=== PATIENT | female | born 1965 | race Caucasian/White ===

== ENCOUNTER → 2017-11-11 | Outpatient (CLI) | payer BC ==
[~2017-11-11] MED LIST: IOPAMIDOL 370 MG/ML 200 ML INFUS..BTL INJ ONE; NAPROXEN PO; PRILOSEC PO; SODIUM CHLORIDE 0.9% 50ML 50 ML ONE
--- NOTE | 2017-11-11 11:03 | Diagnostic Imaging Report ---
PROCEDURE: CT scan of the chest WITH intravenous contrast, using standard protocol. TECHNIQUE: The chest was scanned utilizing a multidetector helical scanner from the lung apex through the level of the adrenal glands after the IV administration of 100 cc of Isovue 370. Coronal and sagittal multiplanar reformations were obtained. COMPARISON: None. INDICATIONS: CHEST PAIN, EPIGASTRIC PAIN FINDINGS: Lines/tubes: None. Lungs and Airways: 7 mm mixed groundglass and solid nodule along the right minor fissure seen on series 3 image 61. The lungs are otherwise unremarkable without consolidation, fibrotic change, or bronchiectasis. Trachea, mainstem bronchi, and central lobar and segmental bronchi are patent Pleura: No pleural effusion or pneumothorax. Heart and mediastinum: The visualized portions of thyroid gland are unremarkable. There is mild bilateral axillary lymphadenopathy to a maximum of 1.2 cm short axis bilaterally. No mediastinal or hilar lymphadenopathy. No pericardial effusion. Pulmonary outflow tract is of normal caliber. There is no ectasia or aneurysmal dilatation of the thoracic aorta. Soft tissues: No focal soft tissue abnormalities. Abdomen: The visualized portions of the liver, spleen, pancreas, adrenals, and kidneys show no focal abnormalities. Hepatic parenchyma is diffusely hypoattenuating compatible with steatosis. Bones: No osseous destructive lesions. IMPRESSION: 7 mm mixed solid and groundglass nodule along the right minor fissure is likely related to prior infectious or inflammatory process. However, followup CT scan of the chest is suggested in 3-6 months to assess for stability per Fleischner Society 2017 guidelines. Mild symmetric axillary lymphadenopathy is nonspecific though likely reactive. In a female patient of this age, correlation with mammography is suggested. Lymph nodes may also be assessed for stability at the time of the above recommended followup CT scan of the chest. Hepatic steatosis. Dictated by: Corbin Kay M.D. on 11/11/2017 at 11:13 Electronically approved by: Corbin Kay M.D. on 11/11/2017 at 11:13
== END ==
LOC: CT 09:29
PROVIDERS: ATTEND Family Medicine
DX: R07.9 Chest pain, unspecified (principal)
CPT/HCPCS: 71260; Q9967

== ENCOUNTER → 2017-11-21 | Outpatient (CLI) | payer BC ==
[~2017-11-21] MED LIST changes: -IOPAMIDOL 370 MG/ML 200 ML INFUS..BTL INJ ONE; +IRON PO; +OMEPRAZOLE40 MG; -SODIUM CHLORIDE 0.9% 50ML 50 ML ONE
--- NOTE | 2017-11-21 15:47 | Diagnostic Imaging Report ---
#[id number] - [id number] #BILATERAL DIGITAL DIAGNOSTIC MAMMOGRAM WITH CAD: 11/21/2017 No prior exams were available for comparison. Current study contains 6 films. There are scattered fibroglandular elements in both breasts. Current study was also evaluated with a Computer Aided Detection (CAD) system. There are prominent lymph nodes in both axillary regions. These have been noted on a prior Chest CT. Patient is scheduled for a followup Chest CT in 3-6 months and these lymph nodes can be re-evaluated for stability at that time. No significant masses, calcifications, or other findings are seen in either breast. IMPRESSION: BENIGN There is no mammographic evidence of malignancy. A 1 year screening mammogram is recommended. Slightly prominent lymph nodes in both both axillary regions. The results of this mammogram were discussed with the patient. Anthony Meyer Jr., D.O. cw/:11/21/2017 14:58:41 [employer] Stamper: Bridget NOVAK)(Shan), [facility] letter sent: Normal Exam Mammogram BI-RADS: 2 Benign
== END ==
LOC: MAMMO 12:13
PROVIDERS: ATTEND Family Medicine
DX: R59.9 Enlarged lymph nodes, unspecified (principal)

== ENCOUNTER → 2017-11-25 | Day surgery (SDC) | payer BC ==
[~2017-11-25] MED LIST changes: +FENTANYL CITRATE/PF 100MCG/2 ML INJ ONE; +LIDOCAINE HCL 2% LOCAL INJ 5 ML SDV VIAL INJ ONE; +MIDAZOLAM HCL 2 MG/2 ML VIAL ONE; +PROPOFOL IV EMULSION 10 MG/ML 50 ML VIAL ONE
--- OUTSIDE RECORDS SUMMARY | 2017-11-25 06:11 | XMS REPORT ---
Author Author [facility] Address Unknown Phone Unavailable Care Team Providers Care [employer] Attendant Name Role Phone SALLIE CONTI Unavailable Unavailable Problems This patient has no known problems. Allergies, Adverse Reactions, Alerts This patient has no known allergies or adverse reactions. Medications This patient has no known medications. Results Test Description Test Time Test Comments Text Results Atomic Results Result Comments MAMMO DIAG BILATERAL CAD [place] [id number] [place] [id number] Patient Name: EJ GLYNN MR #: [id number] : 1965 Age/Sex: 52/F Req #: [id number] Adm Physician: Ordered by: SALLIE CONTI DO Report #: [id number] Location: MAMMO Room/Bed: Procedure: [id number] MG/MAMMO DIAG BILATERAL CAD Exam Date: 11/21/17 Exam Time: 1230 REPORT STATUS: Signed #[id number] - [id number] #BILATERAL DIGITAL DIAGNOSTIC MAMMOGRAM WITH CAD: 11/21/2017 No prior exams were available for comparison. Current study contains 6 films. There are scattered fibroglandular elements in both breasts. Current study was also evaluated with a Computer Aided Detection (CAD) system. There are prominent lymph nodes in both axillary regions. These have been noted on a prior Chest CT. Patient is scheduled for a followup Chest CT in 3- 6 months and these lymph nodes can be re-evaluated for stability at that time. No significant masses, calcifications, or other findings are seen in either breast. IMPRESSION: BENIGN There is no mammographic evidence of malignancy. A 1 year screening mammogram is recommended. Slightly prominent lymph nodes in both both axillary regions. The results of this mammogram were discussed with the patient. Scottie Meyer Jr., D.O. cw /:11/21/2017 14:58:41 [employer]: Bridget NOVAK)(Shan), [facility] letter sent: Normal Exam Mammogram BI-RADS : 2 Benign Dictated By: SCOTTIE MEYER DO 1458 Transcribed By: MUNDO on 11/21/171457 COPY TO: SALLIE CONTI DO CT CHEST [address] [place] [address] Patient Name: EJ GLYNN MR #: [id number] : 1965 Age/Sex: 52/F Req #: [id number] Adm Physician: Ordered by: SALLIE CONTI DO Report #: [id number] Location: CT Room/Bed: Procedure: [id number] CT/CT CHEST W Exam Date: 11/11/17 Exam Time: 1016 REPORT STATUS: Signed PROCEDURE: CT scan of the chest WITH intravenous contrast, using standard protocol. TECHNIQUE: The chest was scanned utilizing a multidetector helical scanner from the lung apex through the level of the adrenal glands after the IV administration of 100 cc of Isovue 370. Coronal and sagittal multiplanar reformations were obtained. COMPARISON: None. INDICATIONS: CHEST PAIN, EPIGASTRIC PAIN FINDINGS: Lines/tubes: None. Lungs and Airways: 7 mm mixed groundglass and solid nodule along the right minor fissure seen on series 3 image 61. The lungs are otherwise unremarkable without consolidation, fibrotic change, or bronchiectasis. Trachea, mainstem bronchi, and central lobar and segmental bronchi are patent Pleura: No pleural effusion or pneumothorax. Heart and mediastinum: The visualized portions of thyroid gland are unremarkable. There is mild bilateral axillary lymphadenopathy to a maximum of 1.2 cm short axis bilaterally. No mediastinal or hilar lymphadenopathy. No pericardial effusion. Pulmonary outflow tract is of normal caliber. There is no ectasia or aneurysmal dilatation of the thoracic aorta. Soft tissues: No focal soft tissue abnormalities. Abdomen: The visualized portions of the liver, spleen, pancreas, adrenals, and kidneys show no focal abnormalities. Hepatic parenchyma is diffusely hypoattenuating compatible with steatosis. Bones: No osseous destructive lesions. IMPRESSION: 7 mm mixed solid and groundglass nodule along the right minor fissure is likely related to prior infectious or inflammatory process. However, followup CT scan of the chest is suggested in 3-6 months to assess for stability per Fleischner Society 2017 guidelines. Mild symmetric axillary lymphadenopathy is nonspecific though likely reactive. In a female patient of this age, correlation with mammography is suggested. Lymph nodes may also be assessed for stability at the time of the above recommended followup CT scan of the chest. Hepatic steatosis. Dictated by: Abelardo Ramesh M.D. on 2017 at 11:13 Electronically approved by: Abelardo Ramesh M.D. on 11/11/2017 at 11:13 Dictated By: ABELARDO RAMESH MD 1113 Transcribed By: MASOUD on 11/11/17 1113 COPY TO: SALLIE CONTI DO
--- NOTE | 2017-11-25 09:49 | Operative Report ---
DATE OF PROCEDURE: November 25, 2017 PROCEDURE PERFORMED: Esophagogastroduodenoscopy with biopsies and a colonoscopy with polypectomy. REFERRING PHYSICIAN: Dr. Tobi Conti INDICATIONS FOR EGD: History of heartburn, indigestion, iron deficiency anemia. INDICATIONS FOR COLONOSCOPY: Colorectal cancer screening. MEDICATION: Patient was done under MAC. Please see anesthesiologist note. PROCEDURE IN DETAIL: With the patient in left lateral decubitus position, the flexible fiberoptic Olympus gastroscope was introduced into the esophagus under direct visualization without any difficulty. There was some patchy erythema noted in distal esophagus. The scope was then advanced with ease into her stomach. Mucosa overlying the antrum and the body revealed some diffuse erythema and moderate edema, and biopsies were obtained and sent to stain for H. pylori. The pylorus was of normal contour and shape. It was intubated with ease and the scope was advanced all the way to the second portion of the duodenum. Biopsies were obtained from the proximal second portion to rule out sprue considering patient's history of iron deficiency. The scope was then withdrawn back into the stomach and retroflexed, and the mucosa overlying the fundus and the cardia appeared to be within normal limits. The scope was then straightened out. The stomach was decompressed. The scope was subsequently withdrawn. Patient tolerated the procedure well. IMPRESSION: 1. Distal esophagitis. 2. Gastritis, biopsied. Biopsies sent to stain for Helicobacter pylori. 3. Rule out sprue. PLAN: Follow up histology. Continue omeprazole 40 mg 1 p.o. q.a.m. a.c. Patient was then turned around, and after adequate lubrication of the anal canal, a flexible fiberoptic Olympus colonoscope was inserted into the rectum with ease and advanced all the way to the cecum. It was then withdrawn slowly. Mucosa overlying the cecum, ascending colon, transverse colon, and descending colon appeared to be within normal limits. One polyp was hot biopsied from the sigmoid. One polyp was snared from the rectum. The scope was then retroflexed into the distal rectum and small internal hemorrhoids were noted along with hypertrophied anal papillae. The scope was then straightened out. It was subsequently withdrawn. Patient tolerated the procedure well. IMPRESSION: 1. Sigmoid colon polyp, hot biopsied. 2. Rectal polyp, snared. 3. Internal hemorrhoids, none actively bleeding. 4. Hypertrophied anal papillae. PLAN: Follow up histology. Initiate high-fiber low-fat diet. Initiate high-fiber supplement. Patient will need a followup colonoscopy in 3 years. Patient might benefit from small bowel series to complete workup. Job#: [id number] cc:TOBI CONTI DO
== END | disposition home or self-care (01) ==
LOC: OR 06:08
PROVIDERS: ATTEND Internal Medicine Gastroenterology
DX: Z12.11 Encounter for screening for malignant neoplasm of colon (principal); K63.5 Polyp of colon; K62.1 Rectal polyp; Z68.30 Body mass index [BMI] 30.0-30.9, adult; K29.70 Gastritis, unspecified, without bleeding; K20.9 Esophagitis, unspecified; K62.89 Other specified diseases of anus and rectum; K64.8 Other hemorrhoids; A04.8 Other specified bacterial intestinal infections; D50.0 Iron deficiency anemia secondary to blood loss (chronic); K76.0 Fatty (change of) liver, not elsewhere classified; Z01.810 Encounter for preprocedural cardiovascular examination
CPT/HCPCS: 43239; 45384; 45385; 81025; 93005; J2250; J2001

== ENCOUNTER → 2018-04-07 | Outpatient (CLI) | payer BC ==
[~2018-04-07] MED LIST changes: -FENTANYL CITRATE/PF 100MCG/2 ML INJ ONE; -LIDOCAINE HCL 2% LOCAL INJ 5 ML SDV VIAL INJ ONE; -MIDAZOLAM HCL 2 MG/2 ML VIAL ONE; -PROPOFOL IV EMULSION 10 MG/ML 50 ML VIAL ONE
--- NOTE | 2018-04-07 11:07 | Diagnostic Imaging Report ---
PROCEDURE: CT CHEST WITHOUT CONTRAST CT scan of the chest WITHOUT intravenous contrast, using standard protocol. TECHNIQUE: The chest was scanned utilizing a multidetector helical scanner from the apex to the level of the adrenal glands. Coronal and sagittal multiplanar reformations were obtained. DLP: 522.55 mGy-cm COMPARISON: CT scan of the chest dated 11/11/2017 INDICATIONS: EVALUATION OF LUNG NODULE FINDINGS: Lines/tubes: None. Lungs and Airways: The mixed semisolid/groundglass nodule in the right middle lobe appears similar in configuration and size now measuring 6-7 mm (series 4, image 64-66). No additional nodules are seen. No pulmonary parenchymal abnormalities. Pleura: The pleural spaces are clear. Heart and mediastinum: The thyroid gland is normal. No significant mediastinal, hilar or axillary lymphadenopathy is seen. The prominent axillary lymph nodes have decreased in size. The heart and pericardium are within normal limits. Soft tissues: Normal. Abdomen: Limited views of the upper abdomen show no abnormality within the visualized spleen, pancreas or kidneys. Decreased attenuation of the liver compared to the spleen persists. There is calcification within the left adrenal gland. Small splenule noted anterior to the spleen. Bones: Mild degenerative changes of the spine. IMPRESSION: 1. No significant interval change in the size or appearance of the right middle lobe nodule. 2. Previously described axillary lymphadenopathy has decreased in size. 3. Followup CT scan in one year suggested. Anthony Meyer D.O. Dictated by: Anthony Meyer D.O. on 04/07/2018 at 11:05 Electronically approved by: Anthony Meyer D.O. on 04/07/2018 at 11:11
== END ==
LOC: CT 09:52
PROVIDERS: ATTEND Internal Medicine Pulmonary Disease
DX: J98.4 Other disorders of lung (principal)
CPT/HCPCS: 71250

== ENCOUNTER → 2018-11-20 | Outpatient (CLI) | payer BC ==
--- NOTE | 2018-11-20 08:45 | Diagnostic Imaging Report ---
EXAMINATION: CT scan of the chest without contrast. TECHNIQUE: Spiral CT images of the chest were performed from the lung apices to the level of the adrenal glands. No intravenous contrast was administered per referring physician request. Coronal and sagittal reformatted images were obtained. COMPARISON: None. CLINICAL HISTORY:Follow-up of "spot on lungs" DISCUSSION: ABSENCE OF INTRAVENOUS CONTRAST DECREASES SENSITIVITY FOR DETECTION OF FOCAL LESIONS AND VASCULAR PATHOLOGY. LINES/TUBES: None. LUNGS AND AIRWAYS: 6 mm solid nodule in the low anterior right upper lobe seen on series 4 image 60. 3 mm groundglass nodule in the right lower lobe seen on series 4 image 52. 4-5 mm solid nodule in the left upper lobe seen on series 4 image 37. Lungs are otherwise unremarkable without consolidation, bronchiectasis, or fibrotic change. Trachea, mainstem bronchi, and central lobar and segmental bronchi are patent. PLEURA: No pneumothorax or pleural effusions. HEART AND MEDIASTINUM: The thyroid gland is normal. There is no ectasia or aneurysmal dilatation of the thoracic aorta area no pericardial effusion. LYMPH NODES: No axillary, hilar, or mediastinal lymphadenopathy. ABDOMEN: Visualized portions of the liver, spleen, pancreas, adrenals, and upper poles of the kidneys are unremarkable in their unenhanced appearance. BONES AND SOFT TISSUES: No acute bony abnormalities. IMPRESSION: Scattered bilateral solid and subsolid pulmonary nodules measuring up to 6 mm as described above. In the absence of prior CT scan for comparison, a follow-up CT scan of the chest without contrast in 3-6 months is suggested per Fleischner Society 2017 guidelines. Signed by: Dr. Corbin Kay M.D. on 11/20/2018 8:42 AM
== END ==
LOC: CT 07:50
PROVIDERS: ATTEND Internal Medicine Pulmonary Disease
DX: J98.4 Other disorders of lung (principal)
CPT/HCPCS: 71250

== ENCOUNTER → 2020-07-25 | Outpatient (CLI) | payer BC | LOC: CT 07:35 | PROVIDERS: ATTEND Internal Medicine Pulmonary Disease | DX: J98.4 Other disorders of lung (principal) | CPT/HCPCS: 71250 ==